=== PATIENT | female | born 2000 | race Caucasian/White ===

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

== ENCOUNTER → 2021-05-15 10:12 | Outpatient (BNVA) | payer BC, SELFPAY | PROVIDERS: Family Provider Nurse Practitioner Family; PCP Family Medicine; Visit Provider Surgery | DX: Z20.822 Contact with and (suspected) exposure to COVID-19 (principal) | CPT/HCPCS: 87635 ==

== ENCOUNTER 2021-05-20 10:45 | Day surgery (SDC) | payer BC, SELFPAY ==
[2021-05-16 09:29] VITALS: BMI 23.0
[2021-05-20] VITALS (17 sets, daily range): BP systolic 105–137; BP diastolic 56–105; PULSE 43–80; RESP 16–23; TEMP 36.6–36.7; O2SAT 93–100
[2021-05-20 11:03] LABS: OR HCG Qualitative Urine Negative (Negative)
[2021-05-20] MEDS: sodium chloride 0.9% 1,000 ML 30 ML IV (11:38)
[2021-05-20] MEDS: scopolamine 1.5 Patch 1 PATCH TRANSDERMA (11:39)
--- NOTE | 2021-05-20 12:49 | W.PM.OPSUD ---
Surgery/Procedure H&P Update DATE OF PROCEDURE: May 20, 2021 DATE H&P PERFORMED: 05/14/21 H&P UPDATE INFORMATION: I have reviewed H&P completed within last 30 days, I have examined patient prior to procedure and No changes to prior documentation PREOP DIAGNOSIS: Chronic cholecystitis PLANNED PROCEDURE: Operation Date: 05/20/21 12:20 Proposed Procedures p Laparoscopic Cholecystectomy 46915 K81.1(Not Applicable) - Salomon Arredondo MD
--- NOTE | 2021-05-20 13:49 | ANES.PREANE2 ---
Pre-Anesthetic Assessment Pre-Anesthetic Assessment: Height/Weight: Height 1.6 m Weight 58.967 kg Temp Pulse Resp BP Pulse Ox 98.1 F 80 18 126/59 98 05/20/21 11:06 05/20/21 11:06 05/20/21 11:06 05/20/21 11:06 05/20/21 11:06 Preop Diagnosis: Chronic cholecystitis Proposed Procedure: Operation Date: 05/20/21 12:20 Proposed Procedures p Laparoscopic Cholecystectomy 93636 K81.1(Not Applicable) - Salomon Arredondo MD Was Beta Terence taken within 24 hours: N/A Was Clonidine taken within 24 hours: N/A Last intake: Intake Last Liquid Date 05/20/21 Last Liquid Time 02:00 Last Solid Date 05/19/21 Last Solid Time 19:00 Social: Social History: No alcohol and No tobacco Comment: Vapes Exam: Pre-Anes Outpt Exam: alert, oriented x 3, clear to auscultation bilaterally and regular rate & rhythm Airway: Submandibular: WNL Cervical ROM: WNL MP: 2 Dentition: Full History/ROS: No significant history except as noted Anesthetic Plan: ASA status: 1 Anesthesia: General Risk of > 500 ml blood loss (7ml/kg in children): No Meds/Allergies Current Medications: Current Medications Generic Name Dose Route Start Last Admin Trade Name Freq PRN Reason Stop Dose Admin Sodium Chloride 1,000 mls @ 30 ml s/hr 05/20/21 11:00 05/20/21 11:38 Sodium Chloride 0.9% IV 05/21/21 10:59 30 mls/hr .Q24H JORGE Administration PFSH Anesthesia PFSH: Medical History Menometrorrhagia Surgical History (Updated 05/20/21 @ 12:51 by Salomon Arredondo MD) History of wisdom tooth extraction Status post laparoscopic cholecystectomy (~05/20/21) Family History Father Anesthesia complication Denies family history of Diabetes CAD (coronary artery disease) Clotting disorder Dementia Hyperlipidemia Psychiatric illness Chronic kidney disease (CKD) Suicide Bleeding disorder Family history of premature coronary artery disease Lung disease Cancer Hypertension Stroke Social History Alcohol intake: never Female Reproductive History: Date of last menstrual period: 05/16/21 Spontaneous abortions: No Data Anesthesia Other Labs: Laboratory Results - last 48 hr 05/20/21 10:41 Urine HCG, Qual Negative Cardiac Studies: No Data to Display
[2021-05-20] MEDS: meperidine 50 mg/mL INJ 12.5 MG IVP (14:22)
--- NOTE | 2021-05-20 14:26 | PM.OP ---
Operative Report Date of procedure: May 20, 2021 Pre-op Diagnosis: Chronic cholecystitis Post-op diagnosis: same Procedure Done: Laparoscopic cholecystectomy Specimens removed/disposition: Gallbladder Surgeon: Salomon Arredondo Anesthesia: General Condition: stable Disposition: PACU Procedure: The patient was taken to the operating room and was intubated under general anesthesia. After the antibiotic had been administered, the abdomen was prepped and draped in a sterile manner. Using a #15 blade, a 1 centimeter infraumbilical curvilinear incision was made and using an open Rakesh technique the peritoneal cavity was entered. A 10 millimeter port was placed and 15 millimeters of pneumoperitoneum was created. A 10 millimeter, 30 degrees scope was then introduced. Three 5 millimeter ports were placed in the epigastric, midclavicular and the anterior axillary line two fingerbreadths below the costal margin on the right side under the direct visualization. Ratcheted forceps were introduced into the lateral most port and was used to retract the fundus of the gallbladder cephalad and using forceps the infundibulum of the gallbladder was retracted laterally. Using L-hook cautery the peritoneum overlying the Calot's triangle was opened medially and laterally until the cystic duct and the cystic artery were skeletonized. Dissection was carried along the body of the gallbladder and after ensuring critical view of safety, 4 clips applied on the cystic duct and 3 clips applied on the cystic artery and cut leaving, 3 clips on the remaining portion of the duct and 2 clips on the remaining portion of the artery. The rest of the gallbladder was dissected off the liver using L-hook cautery. There was no bleeding or bile leaking noted from the gallbladder fossa and the clips appeared to be in place. An EndoCatch bag was introduced to remove the gallbladder. All the ports were removed under direct visualization and there was no bleeding noted from the port sites. The fascia of the umbilicus was closed using [id number] 0 Vicryl sutures and the subcutaneous tissue was approximated using 3-0 Vicryl sutures. The skin at all four ports were closed using 4-0 Monocryl and Dermabond. A total of 10 millimeters of 0.5% Marcaine was infiltrated around the port sites. The patient was stable throughout the procedure.
[2021-05-20] MEDS: fentaNYL 50 mcg/mL INJ 2mL IVP ×2 (14:32→14:38)
[2021-05-20] MEDS: HYDROmorphone 1 mg/mL INJ 1 mL 0.5 MG IVP (14:47)
--- NOTE | 2021-05-20 14:50 | SUR.PHASEI ---
[id number] PT CRYING , RESP FAST , PT STATES SHE HAS ANXIETY ISSUES, PT REMINDED SHE IS IN RECOVERY AND WE WILL KEEP WORKING TO RELIEVE HER PAIN PT STATES (IT HURTS REALLY BAD) DR PULIDO AT BEDSIDE , ORDERS RECIEVED TO GO TO [facility] FOR PAIN SEE MEDS GIVEN. ABD SOFT AND SITES D/I
--- NOTE | 2021-05-20 15:40 | ANE.PACU2 ---
Inpatient post-anesthesia follow up: Airway intact: Yes Vital signs: Temperature 97.8 F Pulse Rate 69 Respiratory Rate 20 Blood Pressure 116/70 Pulse Oximetry 99 Oxygen Delivery Me thod Room Air Oxygen Flow Rate 17 Fraction of Inspir ed Oxygen Hydration adequate: Yes Nausea and vomiting: No Pain level: 3 Mental status: Baseline
[2021-05-20] MEDS: HYDROcodone-acetaminophen 5-325 mg Tablet 1 TAB PO (15:45)
== END 2021-05-20 16:26 | disposition home or self-care (01) ==
PROVIDERS: PCP Family Medicine; Visit Provider Surgery
PROC: 0FT44ZZ Resection of Gallbladder, Percutaneous Endoscopic Approach (ICD-10-PCS; CPT 47562; principal; 2021-05-20 12:20)
DX: K81.1 Chronic cholecystitis (principal)
CPT/HCPCS: 47562; 81025; 84703; 88304; 96365; J0690; J1100; J1170; J1885; J2175; J2405; J2704; J2710; J3010; J3490; J7030

== ENCOUNTER 2021-05-22 21:12 | Emergency (ER) | payer BC, SELFPAY ==
[2021-05-22 23:19] VITALS: BP 104/68; PULSE 76; RESP 16; TEMP 36.8; O2SAT 98; BMI 23.0
[2021-05-23 02:04] LABS: Basophils # 0.1 10^3/uL (0.0-0.1); Basophils % 0.8 %; Eosinophils # 0.3 10^3/uL (0.0-0.8); Eosinophils % 3.8 %; Hematocrit 38.8 % (37.0-47.0); Hemoglobin 12.3 g/dL (11.5-15.3); Lymphocytes # 2.4 10^3/uL (1.5-6.5); Lymphocytes % 32.3 %; Mean Corpuscular HGB Conc 31.7 g/dL (30.0-36.0); Mean Corpuscular Hemoglobin 27.6 pg (28.0-34.0); Mean Corpuscular Volume 87.2 fl (81-99); Mean Platelet Volume 10.5 fL (7.4-10.4); Monocytes # 0.5 10^3/uL (0.2-0.9); Neutrophils # 4.24 10^3/uL (1.8-8.0); Nucleated Red Blood Cells % 0 %; Platelet Count 245 10^3/cmm (130-400); Red Blood Count 4.45 10^6/uL (4.1-5.3); Red Cell Distribution Width 13.3 % (12.1-15.1); White Blood Count 7.5 10^3/uL (4.5-13.0)
[2021-05-23 02:29] LABS: Alanine Aminotransferase 198 U/L (0-33); Albumin Level 3.9 g/dL (3.5-5.2); Alkaline Phosphatase 71 IU/L (35-105); Aspartate Amino Transferase 78 U/L (0-32); Blood Urea Nitrogen 11 mg/dL (6-20); Calcium 8.9 mg/dL (8.5-10.5); Carbon Dioxide 24 mmol/L (22-29); Chloride 104 mmol/L (98-107); Globulin 3.2 g/dL (1.3-4.6); Glomerular Filtration Rate 107.8 mL/min (90-130); Glucose 76 mg/dL (65-115); Lipase 28 U/L (13-60); Osmolality Calculated 282 mOsm/kg (285-295); Sodium 137 mmol/L (136-145); Total Bilirubin 0.6 mg/dL (0.15-1.2); Total Protein 7.1 g/dL (6.6-8.7)
--- NOTE | 2021-05-23 04:07 | CTR_ITS ---
PROCEDURE INFORMATION: Exam: CT Abdomen And Pelvis With Contrast Exam date and time: 05/23/2021 4:07 AM Age: 20 years old Clinical indication: Other: Incision draining. ; Prior surgery; Surgery date: 3-7 days post-operative; Patient HX: Drainage from umbilical incision site S/P gb surgery on 05/20/2021. ; Additional info: Abd pain TECHNIQUE: Imaging protocol: Computed tomography of the abdomen and pelvis with contrast. Radiation optimization: All CT scans at this facility use at least one of these dose optimization techniques: automated exposure control; mA and/or kV adjustment per patient size (includes targeted exams where dose is matched to clinical indication); or iterative reconstruction. Contrast material: OMNI 300; Contrast volume: 75 ml; Contrast route: INTRAVENOUS (IV); COMPARISON: Nathan relevant prior studies available. RADIATION DOSE METRICS: Total DLP (mGy-cm): 1128.29 FINDINGS: Lungs: The lung bases are clear. Liver: Unremarkable. Gallbladder and bile ducts: Evidence for recent cholecystectomy, no significant biliary tree dilation. No abnormal fluid collection in the gallbladder fossa. No significant peritoneal fluid to strongly suggest an active bile leak. No biliary tree dilation. Pancreas: Unremarkable. Spleen: Unremarkable. Adrenal glands: Unremarkable. Kidneys and ureters: Unremarkable. Stomach and bowel: There are no CT findings to strongly suggest diverticulitis. Appendix: The appendix is visualized and appears normal. Intraperitoneal space: There are a few very small areas of free intraperitoneal air in the abdomen, presumably related to the recent surgery. No generalized ascites, or significant bowel distention. Vasculature: No evidence for abdominal aortic aneurysm. Lymph nodes: No retroperitoneal adenopathy. Urinary bladder: Unremarkable as visualized. Reproductive: 5 x 4 x 3.7 x 5.1 cm left adnexal/ovarian cyst. This is somewhat larger than expected for a physiologic cyst, but that is still a likely etiology in this young age group. Other etiologies not excluded. Ultrasound could further evaluate these ovarian findings if felt clinically indicated, and could also be used for appropriate follow-up, to insure against a persistent or enlarging lesion/neoplasm. Mild to moderate amount of cul-de-sac fluid. Bones/joints: There is bilateral L5 spondylolysis, possibly partially healed on the right There is mild grade 1 spondylolisthesis. Soft tissues: Very small focus of gas in the left periumbilical region of the abdominal wall, presumably postsurgical in nature. There is no visible/significant abdominal wall fluid collection/hematoma or drainable abscess at this time. CT/CT abdomen pelvis w con* [id number] IMPRESSION: 1. Very small focus of gas in the left periumbilical region of the abdominal wall, presumably postsurgical in nature. There is no visible/significant abdominal wall fluid collection/hematoma or drainable abscess at this time. 2. Recent cholecystectomy, no significant biliary tree dilation. 3. No abnormal fluid collection in the gallbladder fossa. No significant peritoneal fluid to strongly suggest an active bile leak. 4. There are a few very small amounts of free intraperitoneal air in the abdomen, presumably related to the recent surgery. 5. 5 x 4 x 3.7 x 5.1 cm left adnexal/ovarian cyst, see above discussion. 6. No significant bowel distention. 7. Normal appendix. 8. Other findings discussed above. Radiation Dose CTDIVOL = (mGy): DLP = 1128.29 (mGy-cm)
[2021-05-23 04:23] VITALS: RESP 18
[2021-05-23] MEDS: ondansetron 2 mg/ML SDV 2 mL 4 MG IVP (04:23)
[2021-05-23] MEDS: HYDROmorphone 1 mg/mL INJ 1 mL IVP (04:23)
[2021-05-23 04:25] VITALS: BP 122/65; PULSE 78; RESP 18; O2SAT 98
--- NOTE | 2021-05-23 04:33 | W.ED.ABDPA2 ---
HPI - Abdominal Pain General: Chief Complaint: Abdominal Pain Stated Complaint: post op site draning Time Seen by Provider: 05/23/21 04:01 Source: patient Mode of arrival: ambulatory Limitations: no limitations History of Present Illness: HPI narrative: 20-year-old female who had cholecystectomy done 3 days ago states that today she has been having increasing pain with nausea. Patient states her pain is a 8 out of 10. States is worse with palpation improved with rest. Patient denies any vomiting or diarrhea. She denies any fevers. Patient's cholecystectomy was done laparoscopically. Associated Symptoms: Denies chills, dysuria and fever(s) Related Data: Date of Last Menstrual Period: 05/16/21 Review of Systems Const: Denies: fever(s), chills, body aches or change in appetite Eyes: Denies: blurry vision or eye discomfort ENMT: Denies: throat pain or dental pain Card: Denies: chest pain Resp: Denies: dyspnea GI: Reports: abdominal pain : Denies: dysuria Musc: Denies: neck pain or back pain Skin/Breast: Denies: rash Neuro: Denies: headache(s) Psych: Denies: depression Bib/Lymph: Denies: easy bruising All/Imm: Denies: urticaria PFSH ED PFSH: Medical History Menometrorrhagia Surgical History History of wisdom tooth extraction Status post laparoscopic cholecystectomy (~05/20/21) Family History Father Anesthesia complication Denies family history of Diabetes CAD (coronary artery disease) Clotting disorder Dementia Hyperlipidemia Psychiatric illness Chronic kidney disease (CKD) Suicide Bleeding disorder Family history of premature coronary artery disease Lung disease Cancer Hypertension Stroke Social History Alcohol intake: never Female Reproductive History: Date of last menstrual period: 05/16/21 Spontaneous abortions: No Physical Exam Const: COMMON NORMALS: no acute distress, patient oriented x3 and healthy appearing HENMT: COMMON NORMALS: normocephalic and atraumatic HEAD & SCALP: normocephalic and atraumatic Eye: COMMON NORMALS: Equal, round and reactive pupils present and EOMs intact bilaterally PUPIL: Yes Equal, round and reactive pupils present Neck/C-Spine: COMMON NORMALS: full ROM and supple Chest: COMMONS NORMALS: normal inspection of the chest and normal palpation of entire chest wall Resp: COMMON NORMALS: normal respiratory effort, No retractions, No use of accessory muscles and clear to auscultation bilaterally AUSCULTATION: clear to auscultation bilaterally Cardio: COMMON NORMALS: regular rate, regular rhythm and No murmurs present (Cardio) RATE: regular rate RHYTHM: regular rhythm GI: COMMON NORMALS: Normal to inspection, nondistended, normoactive bowel sounds present, Soft to palpation and no masses PALPATION: Yes Soft to palpation OTHER: Incisions are clean dry and intact diffuse moderate abdominal tenderness noted with no abscess noted Extremity: COMMON NORMALS: normal to inspection and full ROM Neuro: COMMON NORMALS: patient oriented x3, moves all extremities and no focal motor deficits Psych: COMMON NORMALS: mental status grossly normal, Normal thought process present and cooperative THOUGHT PROCESS: Normal thought process present Skin: COMMON NORMALS: no rashes or lesions noted and no wounds GENERAL SKIN EXAM: no rashes or lesions noted Course Vital Signs: Vital signs: Vital Signs Temperature 98.3 F 05/22/21 23:19 Pulse Rate 78 05/23/21 04:25 Respiratory Rate 18 05/23/21 04:25 Blood Pressure 122/65 05/23/21 04:25 Pulse Oximetry 98 05/23/21 04:25 MDM - Abdominal Pain MDM Narrative: Medical decision making narrative: Patient presents here with abdominal pain likely postsurgical pain. Patient CT scan here shows no abscess or any other findings. She feels much improved here after IV pain medicines. Patient's stable for discharge is to follow-up with Dr. Arredondo and return if worsening. Lab Data: Labs: Lab Results 05/23/21 05/23/21 05/23/21 Range/Units 02:00 02:00 02:00 WBC 7.5 (4.5-13.0) 10^3/ uL RBC 4.45 (4.1-5.3) 10^6/u L Hgb 12.3 (11.5-15.3) g/dL Hct 38.8 (37.0-47.0) % MCV 87.2 (81-99) fl MCH 27.6 L (28.0-34.0) pg MCHC 31.7 (30.0-36.0) g/dL RDW 13.3 (12.1-15.1) % Plt Count 245 (130-400) 10^3/c mm MPV 10.5 H (7.4-10.4) fL Neut % (Auto) 57.0 % Lymph % (Auto) 32.3 % [place] % (Auto) 6.0 % Eos % (Auto) 3.8 % Baso % (Auto) 0.8 % Neut # (Auto) 4.24 (1.8-8.0) 10^3/u L Lymph # (Auto) 2.4 (1.5-6.5) 10^3/u L [place] # (Auto) 0.5 (0.2-0.9) 10^3/u L Eos # (Auto) 0.3 (0.0-0.8) 10^3/u L Baso # (Auto) 0.1 (0.0-0.1) 10^3/u L Nucleated RBC % (a uto) 0 % Nucleated RBCs # 0.0 /100WBC Sodium 137 (136-145) mmol/L Potassium 4.0 (3.5-5.1) mmol/L Chloride 104 (98-107) mmol/L Carbon Dioxide 24 (22-29) mmol/L Anion Gap 13.0 (5-19) BUN 11 (6-20) mg/dL Creatinine 0.7 (0.5-0.9) mg/dL GFR Calculation 107.8 (90-130) mL/min Glucose 76 (65-115) mg/dL Calculated Osmolal ity 282 L (285-295) mOsm/k g Calcium 8.9 (8.5-10.5) mg/dL Total Bilirubin 0.6 (0.15-1.2) mg/dL AST 78 H (0-32) U/L ALT 198 H (0-33) U/L Alkaline Phosphata se 71 (35-105) IU/L Total Protein 7.1 (6.6-8.7) g/dL Albumin 3.9 (3.5-5.2) g/dL Globulin 3.2 (1.3-4.6) g/dL Lipase 28 (13-60) U/L HCG, Qual Negative (Negative) Imaging Data ^: CT Abd/Pel: Attestation: I personally reviewed and interpreted this imaging study as follows: Radiologist's impression: [facility] [address] [place] [address] CT Scan Report Signed Patient: Simona Elise Unit #: [id number] : 2000 Age/Sex: 20 / F ADM Date: 05/22/21 Loc: ER Room/Bed: Attending Dr: Ordering Provider/Ordering MD: Adalid Carr MD Date of Service: 05/23/21 Procedure(s): CT abdomen pelvis w con* [id number] Accession Number(s): [id number] Report Number: [id number] PROCEDURE INFORMATION: Exam: CT Abdomen And Pelvis With Contrast Exam date and time: 05/23/2021 4:07 AM Age: 20 years old Clinical indication: Other: Incision draining. ; Prior surgery; Surgery date: 3-7 days post-operative; Patient HX: Drainage from umbilical incision site S/P gb surgery on 05/20/2021. ; Additional info: Abd pain TECHNIQUE: Imaging protocol: Computed tomography of the abdomen and pelvis with contrast. Radiation optimization: All CT scans at this facility use at least one of these dose optimization techniques: automated exposure control; mA and/or kV adjustment per patient size (includes targeted exams where dose is matched to clinical indication); or iterative reconstruction. Contrast material: OMNI 300; Contrast volume: 75 ml; Contrast route: INTRAVENOUS (IV); COMPARISON: Nathan relevant prior studies available. RADIATION DOSE METRICS: Total DLP (mGy-cm): 1128.29 FINDINGS: Lungs: The lung bases are clear. Liver: Unremarkable. Gallbladder and bile ducts: Evidence for recent cholecystectomy, no significant biliary tree dilation. No abnormal fluid collection in the gallbladder fossa. No significant peritoneal fluid to strongly suggest an active bile leak. No biliary tree dilation. Pancreas: Unremarkable. Spleen: Unremarkable. Adrenal glands: Unremarkable. Kidneys and ureters: Unremarkable. Stomach and bowel: There are no CT findings to strongly suggest diverticulitis. Appendix: The appendix is visualized and appears normal. Intraperitoneal space: There are a few very small areas of free intraperitoneal air in the abdomen, presumably related to the recent surgery. No generalized ascites, or significant bowel distention. Vasculature: No evidence for abdominal aortic aneurysm. Lymph nodes: No retroperitoneal adenopathy. Urinary bladder: Unremarkable as visualized. Reproductive: 5 x 4 x 3.7 x 5.1 cm left adnexal/ovarian cyst. This is somewhat larger than expected for a physiologic cyst, but that is still a likely etiology in this young age group. Other etiologies not excluded. Ultrasound could further evaluate these ovarian findings if felt clinically indicated, and could also be used for appropriate follow-up, to insure against a persistent or enlarging lesion/neoplasm. Mild to moderate amount of cul-de-sac fluid. Bones/joints: There is bilateral L5 spondylolysis, possibly partially healed on the right There is mild grade 1 spondylolisthesis. Soft tissues: Very small focus of gas in the left periumbilical region of the abdominal wall, presumably postsurgical in nature. There is no visible/significant abdominal wall fluid collection/hematoma or drainable abscess at this time. CT/CT abdomen pelvis w con* [id number] IMPRESSION: 1. Very small focus of gas in the left periumbilical region of the abdominal wall, presumably postsurgical in nature. There is no visible/significant abdominal wall fluid collection/hematoma or drainable abscess at this time. 2. Recent cholecystectomy, no significant biliary tree dilation. 3. No abnormal fluid collection in the gallbladder fossa. No significant peritoneal fluid to strongly suggest an active bile leak. 4. There are a few very small amounts of free intraperitoneal air in the abdomen, presumably related to the recent surgery. 5. 5 x 4 x 3.7 x 5.1 cm left adnexal/ovarian cyst, see above discussion. 6. No significant bowel distention. 7. Normal appendix. 8. Other findings discussed above. Radiation Dose CTDIVOL = (mGy): DLP = 1128.29 (mGy-cm) Dictated By: Grupo Pat MD Signed By: Grupo Pat MD Signed Date/Time: 05/23/21601 DD/ 9 Discharge Plan Discharge Patient Disposition: Home Clinical Impression: Abdominal pain Qualifiers: Abdominal location: generalized Qualified Code(s): R10.84 - Generalized abdominal pain Condition: Stable Prescriptions: No Action levonorgestrel-ethinyl estrad [Jolessa] 0.15 mg-30 mcg (91) tablets,dose pack,3 month 1 tab PO DAILY 91 Days Qty: 91 RF: 4 triamcinolone acetonide 0.1 % cream 1 applic topical BID 30 Days Qty: 80 RF: 2 Zofran 4 mg tablet 4 mg PO Q6H PRN (Reason: nausea and vomiting) Qty: 20 RF: 0 Colace 100 mg capsule 100 mg PO BID Qty: 30 RF: 0 hydrocodone-acetaminophen 5-325 mg tablet 1 tab PO Q6H PRN (Reason: pain) Qty: 20 RF: 0 Discharge Orders: Discharge ED (Routine); Ordered 05/23/21 Ordered By: Adalid Carr Referrals: Tami Mcgowan MD [Primary Care Provider] - 1-3 days Discharge Diet: Advance as tolerated Discharge Activity: Resume usual activity Patient Instructions: Abdominal Pain (ED) Coding Level of Care Code ED Business Process Architect for Chg Fwd Exam Comprehensive
[2021-05-23 04:47] LABS: HCG, Serum Qual Negative (Negative)
[2021-05-23] MEDS: iohexol 300 mg/mL 100 mL Btl IV (05:03)
[2021-05-23 07:00] VITALS: BP 122/62; PULSE 68; RESP 18; O2SAT 98
== END 2021-05-23 07:01 | disposition home or self-care (01) ==
PROVIDERS: Emergency Provider Emergency Medicine; PCP Family Medicine
DX: R10.84 Generalized abdominal pain (principal)
CPT/HCPCS: 74177; 80053; 83690; 84703; 85025; 96374; 96375; 99283; J1170; J2405; Q9967

== ENCOUNTER → 2021-07-30 13:07 | Outpatient (BNVA) | payer BC, SELFPAY | PROVIDERS: PCP Family Medicine; Visit Provider Nurse Practitioner Women's Health | DX: N92.6 Irregular menstruation, unspecified (principal) | CPT/HCPCS: 81025 ==

== ENCOUNTER → 2021-08-06 11:28 | Outpatient (BNVA) | payer BC, SELFPAY | PROVIDERS: PCP Family Medicine; Visit Provider Obstetrics & Gynecology | DX: Z34.90 Encounter for supervision of normal pregnancy, unspecified, unspecified trimester (principal) | CPT/HCPCS: 80307; 84315; 85027; 86592; 86762; 86803; 86850; 86900; 87086; 87340; 87806 ==

== ENCOUNTER → 2021-08-20 15:31 | Outpatient (BNVA) | payer BC, MEDICAID, SELFPAY | PROVIDERS: PCP Family Medicine; Visit Provider Obstetrics & Gynecology | DX: Z34.90 Encounter for supervision of normal pregnancy, unspecified, unspecified trimester (principal) | CPT/HCPCS: 84315; 87491; 87591 ==

== ENCOUNTER → 2021-08-30 09:44 | Outpatient (BNVA) | payer BC, MEDICAID, SELFPAY | PROVIDERS: PCP Family Medicine; Visit Provider Obstetrics & Gynecology | DX: O23.52 Salpingo-oophoritis in pregnancy (principal) | CPT/HCPCS: 76830; 76857 ==

== ENCOUNTER → 2021-09-13 11:13 | Outpatient (BNVA) | payer BC, MEDICAID, SELFPAY | PROVIDERS: PCP Family Medicine; Visit Provider Nurse Practitioner Women's Health | DX: Z34.90 Encounter for supervision of normal pregnancy, unspecified, unspecified trimester (principal); Z36.9 Encounter for antenatal screening, unspecified | CPT/HCPCS: 82105; 84315 ==

== ENCOUNTER → 2021-12-09 16:20 | Outpatient (BNVA) | payer BC, MEDICAID, SELFPAY | PROVIDERS: PCP Family Medicine; Visit Provider Obstetrics & Gynecology | DX: Z34.90 Encounter for supervision of normal pregnancy, unspecified, unspecified trimester (principal); R19.8 Other specified symptoms and signs involving the digestive system and abdomen | CPT/HCPCS: 82950; 84315; 85027 ==

== ENCOUNTER 2021-12-24 15:30 | Outpatient (CLI) | payer BC, MEDICAID, SELFPAY ==
[2021-12-24] VITALS (10 sets, daily range): BP systolic 101–151; BP diastolic 60–69; PULSE 75–89; RESP 16; TEMP 35.9; BMI 33.8
[2021-12-24] MEDS: lactated ringers 1,000 ML 999 ML IV (17:11)
== END 2021-12-24 18:30 | disposition home or self-care (01) ==
LOC: OPOB 15:33 → OBGYN 15:34
PROVIDERS: PCP Family Medicine; Visit Provider Obstetrics & Gynecology
DX: O46.90 Antepartum hemorrhage, unspecified, unspecified trimester (principal); Z3A.00 Weeks of gestation of pregnancy not specified; R10.9 Unspecified abdominal pain
CPT/HCPCS: 59025; 99211

== ENCOUNTER → 2022-02-04 10:00 | Outpatient (BNVA) | payer BC, MEDICAID, SELFPAY | PROVIDERS: PCP Family Medicine; Visit Provider Obstetrics & Gynecology | DX: Z34.90 Encounter for supervision of normal pregnancy, unspecified, unspecified trimester (principal) | CPT/HCPCS: 84315; 87081 ==

== ENCOUNTER 2022-02-17 08:57 | Outpatient (CLI) | payer BC, MEDICAID, SELFPAY ==
[2022-02-17] VITALS (10 sets, daily range): BP systolic 100–127; BP diastolic 57–81; PULSE 74–91; RESP 18; TEMP 36.1; BMI 35.6
--- NOTE | 2022-02-17 10:00 | P.PCN_ITS ---
Procedure/Consent Procedure Narrative: NONSTRESS TEST: Place of test: [facility] [place]L&D Indication: 21-year-old 1 para 0 at 38 weeks and 3 days gestation with IUGR Date and time of test: 02/17/2022 Baseline: 140 Variability: Moderate variability Accelerations: Accelerations present Decelerations: No decelerations Tocometry: Irregular contractions INTERPRETATION: NST reactive continue kick counts
--- NOTE | 2022-02-17 10:12 | US_ITS ---
WS: [id number] BIOPHYSICAL PROFILE AMNIOTIC FLUID UMBILICAL ARTERY DOPPLER EVALUATION. HISTORY: IUGR COMPARISON: 02/10/2022, Cardiac activity: 126 bpm. Cervix: closed. Placenta: Anterior, no previa or abruption. Placenta grade: Late grade 2. Several placental lakes are also evident which increases the risk for I UGR. Hypoechoic area in the LEFT adnexa is probably a displaced ovary by the gravid uterus or cyst. Parameters are as follows: Breathin Movement: 2 Tone: 2 Fluid volume: 2 Amniotic fluid index: 13.3 cm which is near the 50th percentile. UMBILICAL ARTERY DOPPLER Waveform analysis: Normal systolic and diastolic velocities. Diastolic velocity remains above the bas estella. Normal upstroke of waveform. SD ratios: SD ratios range from 2.3-1.9, free-floating umbilical segment SD ratio is 2.1 which is nor mal for age. Resistivity indices: 0.53 US/US OB BPP wo NST w umb IMPRESSION: 1. Biophysical profile score: 8/8. 2. Normal SD ratio umbilical artery. 3. Late grade 2 placenta.
== END 2022-02-17 11:48 | disposition home or self-care (01) ==
LOC: OPOB 10:04 → OBGYN 10:05
PROVIDERS: PCP Family Medicine; Visit Provider Obstetrics & Gynecology
DX: O36.5930 Maternal care for other known or suspected poor fetal growth, third trimester, not applicable or unspecified (principal); Z3A.38 38 weeks gestation of pregnancy
CPT/HCPCS: 59025; 76819; 76820; 99211

== ENCOUNTER 2022-02-21 21:07 | Inpatient (IN) | payer BC, MEDICAID, SELFPAY ==
[2022-02-21] VITALS (8 sets, daily range): BP systolic 100–118; BP diastolic 60–81; PULSE 71–106; RESP 16; BMI 36.1
[2022-02-21] MEDS: lactated ringers 1,000 ML 999 ML IV (22:11)
[2022-02-21 22:18] LABS: Basophils % 0.4 %; Eosinophils # 0.2 10^3/uL (0.0-0.8); Eosinophils % 1.7 %; Hematocrit 32.6 % (37.0-47.0); Hemoglobin 10.7 g/dL (11.5-15.3); Lymphocytes # 2.4 10^3/uL (1.5-6.5); Lymphocytes % 21.5 %; Mean Corpuscular HGB Conc 32.8 g/dL (30.0-36.0); Mean Corpuscular Hemoglobin 27.2 pg (28.0-34.0); Mean Platelet Volume 12.1 fL (7.4-10.4); Monocytes # 0.9 10^3/uL (0.2-0.9); Monocytes % 8.3 %; Neutrophils # 7.44 10^3/uL (1.8-8.0); Neutrophils % 67.5 %; Nucleated Red Blood Cells % 0 %; Platelet Count 186 10^3/cmm (130-400); Red Blood Count 3.93 10^6/uL (4.1-5.3)
[2022-02-21] MEDS: miSOPROStol 100 mcg tablet 25 MCG VAGINAL (23:20)
[2022-02-22] VITALS (99 sets, daily range): BP systolic 86–207; BP diastolic 50–125; PULSE 61–123; RESP 16–22; TEMP 36.7–37.6; O2SAT 83–100
[2022-02-22] MEDS: morphine 4 mg/mL SDV 1 mL 8 MG IM (01:01)
[2022-02-22] MEDS: promethazine 25 mg/mL SDV 1 mL IM (01:01)
[2022-02-22] MEDS: miSOPROStol 100 mcg tablet 25 MCG VAGINAL ×2 (03:23→09:02)
[2022-02-22] MEDS: dextrose 5%-lactated ringers 1,000 ML 125 ML IV (04:59)
--- NOTE | 2022-02-22 10:04 | P.ANESASSM_ITS ---
Documented by User: Nuzhat Rose CRNA 02/22/22 10:05 Pre-Anesthetic Assessment Height/Weight: Height 1.6 m Weight 92.533 kg Temp Pulse Resp BP 98.8 F 83 16 110/55 02/22/22 08:35 02/22/22 09:35 02/22/22 09:34 02/22/22 09:35 Preop Diagnosis: Active Labor Labor Epidural Familial anesthetic complications: None Social No alcohol and No tobacco Exam alert, oriented x 3 and clear to auscultation bilaterally Airway Submandibular: within normal limits Cervical ROM: within normal limits Mallampati: Class II Dentition: full History/ROS No significant history except as noted Pulmonary None reported CV/HEM None reported None reported Hepatic None reported GI None reported Metabolic None reported Musc/skel None reported Neuropsych None reported Anesthetic Plan ASA status: 2 Anesthesia: Regional (specify below) Other: Labor Epidural Medications/Allergies Home Medications Medication Instructions Recorded Confirmed Last Taken Type prenat.vits,charlotte,eet-zobl-oqyre 1 tab PO DAILY 08/06/21 02/21/22 02/21/22 History Allergies Allergy/AdvReac Type Severity Reaction Status Date / Time No Known Allergies Allergy Verified 02/21/22 23:29 Current Medications Generic Name Dose Route Start Last Admin Trade Name Freq PRN Reason Stop Dose Admin Dextrose/Lactated Ringer's 1,000 mls @ 125 mls/hr 02/21/22 21:28 02/22/22 04:59 Dextrose 5%-Lactated Ringers IV 125 mls/hr .Q8H PRN Administration per label comments FOR[facility] Anesthesia Medical History No pertinent past medical history Denies diabetes, asthma, hypertension, seizures, DVT/PE PCP: Dr. Mcgowan Surgical History History of wisdom tooth extraction Status post laparoscopic cholecystectomy (~05/20/21) Performed by Dr. Arredondo at [facility] [place] Family History Grandmother Breast cancer Maternal, diagnosed at age 65 Denies family history of Colon cancer Ovarian cancer Diabetes Heart disease Hyperlipidemia Chronic kidney disease (CKD) Hypertension Uterine cancer Thyroid disease Stroke Female Reproductive History Date of last menstrual period: 05/16/21 : 1 Spontaneous abortions: No Data Anesthesia : 02/21/22 22:05 Short CBC 02/21/22 Range/Units 22:05 WBC 11.0 (4.5-13.0) 10^3/uL Hgb 10.7 L (11.5-15.3) g/dL Hct 32.6 L (37.0-47.0) % MCV 83.0 (81-99) fl Plt Count 186 (130-400) 10^3/cmm Neut % (Auto) 67.5 % Neut # (Auto) 7.44 (1.8-8.0) 10^3/uL Cardiac Studies: No Data to Display
--- NOTE | 2022-02-22 11:00 | PM.OPHPUD ---
Labor & Delivery H&P Update Date of Procedure: February 22, 2022 Date H&P Performed: 02/17/22 H&P update information: I have reviewed H&P completed within last 30 days, I have examined patient prior to procedure, No changes to prior documentation and H&P is in [facility] [place] [place] EMR on date indicated Admission Diagnosis: Preop diagnosis: Active Labor
[2022-02-22] MEDS: fentaNYL 50 mcg/mL INJ 2mL IVP ×2 (12:34→14:37)
[2022-02-22] MEDS: lactated ringers 1,000 ML 999 ML IV ×3 (13:18→19:19)
--- NOTE | 2022-02-22 15:26 | ANES.PROC ---
Anesthesia Procedures Procedure/Date: 02/22/22 Epidural: Time Out Performed: Yes Consents Signed: Procedure Consent Consent: from patient Lumbar Level: L3-L4 Epidural position: sitting Epidural procedure: sterile prep of area, 1% lidocaine to numb the area, 18 g needle, neg for paresthesia, test dose given, 1.5% xylocaine 1:200k epi, 0.2% Ropivacaine bolus ml, placed PCEA, no systemic response, sterile dressing applied and 0.2% Ropiavacaine @ mls/hr (13) Additional Comments: Called to help assist with epidural after 4 attempts by Nuzhat Rose were unsuccessful. New kit opened. Cap, mask donned by staff in room. Patient sat up. Patient prepped and draped in usual sterile fashion with Chlorprep. 1% lidocaine skin wheel. Tuohy inserted with stylet. Ligament engaged. Using EARNEST w/ saline technique epidural space found, catheter threaded. Negative aspiration. Test dose 1.5% lidocaine with epinephrine 1:200,000 total 3 cc. No response. Sterile dressing. Infusion started. Loss at?8 , catheter at 15 cm. Tolerated well, 2 attempts, good block.?
[2022-02-22] MEDS: diphenhydrAMINE 50 mg/mL SDV 1mL 25 MG IVP (16:48)
--- NOTE | 2022-02-22 18:01 | PC.NURSE ---
Pastrana 30 minutes after insertion of pastrana catheter patient c/o burning and itching. Upon examination patient's labia noted to be swollen significantly. Pastrana removed and a latex free all silicone 12F catheter inserted with 5ml in balloon. Notified Dr. Cooper who ordered 25mg benadryl IVP.
--- NOTE | 2022-02-22 19:38 | PC.NURSE ---
Vital signs at 1917 patient noted to be laying on cuff and cuff in improper position during blood pressure check.
[2022-02-22] MEDS: ondansetron 2 mg/ML SDV 2 mL 4 MG IVP (19:55)
[2022-02-22] MEDS: oxytocin 30 UNIT/500 ML BAG 600 UNIT IV (21:11)
[2022-02-22] MEDS: miSOPROStol 200 mcg Tablet 800 MCG PR (21:15)
--- NOTE | 2022-02-22 21:28 | PM.DELIVERY ---
Delivery Note: Date of delivery: February 22, 2022 - PRE-DELIVERY DIAGNOSIS: 21-year-old 1 para 0 at 39 weeks and 0 days gestation Induction of labor for IUGR-8 percentile GBS negative Left ovarian cyst POST-DELIVERY DIAGNOSIS: Vaginal delivery on 02/22/2022 Left ovarian cyst PROCEDURE: Vaginal delivery on 02/22/2022 ANESTHESIA: Epidural anesthesia DELIVERING PHYSICIAN: Roney Cooper FACOG PRE-DELIVERY COURSE: Ms. Elise is a 21-year-old 1 para 0 at 39 weeks and 0 days who presented to labor and delivery on 02/21/2022 at 9 PM for scheduled induction of labor for IUGR. She had an otherwise uncomplicated course other than the presence of a stable left adnexal/ovarian cyst. -When she presented to labor and delivery she had no new complaints cervix was 1 cm 50% and -3 station with a category 1 tracing. Lab work was overall within normal limits except for mild anemia. Induction was started with Cytotec placed at 11 PM on 02/21/2022. 4 hours later she made no cervical change and a second Cytotec was placed at 4 AM. 4 hours later she had not made any cervical change but was having irregular contractions every 2 to 5 minutes. She received an IV fluid bolus was allowed to ambulate and eat and after this contractions had spaced out to every 6 to 10 minutes and the third Cytotec was placed at 9 AM on 02/22/2022. With this she started to grow more uncomfortable and had regular contractions and desired an epidural which was placed. At about 12:45 PM on 02/22/2022 she was noted to be 4 to 5 cm, 70% and -3 station. After the epidural and after she was comfortable artificial rupture of membranes was performed at 3:55 PM at which point she was 5 cm and 70% and -2 station. Fluid was clear. She started to make cervical change after this and was fully dilated at 8:45 PM and set up in lithotomy position ready to push. DELIVERY NOTE: She was set up in lithotomy position and was pushing effectively. She was noted to be +3 station and continued pushing well. The head delivered in RICCARDO position, nuchal cord x1 was present-it was not tight but it was unable to be reduced and with the next push the shoulders and rest of the body followed with her next push and deliver through the nuchal cord without any difficulty. The baby's mouth and nose were suctioned and the baby was placed on the mother's belly. Once cord pulsations stopped the cord was clamped and cut. The placenta delivered spontaneously intact with membranes and was discarded. The fundus was noted to be firm and well contracted however the lower segment was extremely boggy despite bimanual massage. 100 mcg of Cytotec was placed per rectum and with this and continued bimanual massage uterine tone improved. The vagina and cervix were inspected and no cervical or sulcal lacerations were noted. She had a first-degree vaginal laceration and a small abrasion on her right labia which repaired with a [id number]-[id number] suture. Good hemostasis and reapproximation was obtained Baby Lexus plaza born at 9:07 PM on 02/[birth year]22 with 8/8, weighing 6 pounds 6 ounces, 2865 g, 19-1/2 inches long. Placenta was delivered spontaneously intact with membranes. Cotyledons were intact , eccentrically inserted umbilical cord with 3 vessels noted. Estimated blood loss 300 mL. Complications-none, both baby and mother were left to recover in a stable condition This documentation was created by [employer] residential solar sales consultant software (known for inherent residential solar sales consultant error). Every effort was made to assure accuracy of residential solar sales consultant. Any obvious errors or omissions should be clarified with the author of the document. History History History 1 Term 1 Miscarriages/Ectopic 0 0 Living Children 1 Other History: X 1 1---> 02/22/2022----> vaginal delivery by Dr. Cooper at [facility] [place], baby bola Alberts weighing 6 pounds 6 ounces. Induction of labor at 39 weeks and 0 days for IUGR of 8 percentile. First-degree vaginal tear. Coding Level of Care Code Acute Pain Coordinator for Enrriqueg Lucy
--- NOTE | 2022-02-22 23:16 | PC.NURSE ---
This RN was to bedside to assist mother with latching. was skin to skin. Helped mother position infant in the football hold. Educated on latching, how to tell if it is deep latch, hand expression.
[2022-02-22] MEDS: benzocaine-menthol 78 gm Canister 1 SPRAY TOPICAL (23:27)
[2022-02-22] MEDS: lanolin oint 7 gm 1 APPLIC TOPICAL (23:28)
[2022-02-23] VITALS (16 sets, daily range): BP systolic 92–130; BP diastolic 44–63; PULSE 56–101; RESP 18; TEMP 36.4–37.4
[2022-02-23] MEDS: docusate sodium 100 mg Capsule PO (09:00)
[2022-02-23] MEDS: prenatal vitamin Capsule 1 CAP PO (09:00)
[2022-02-23] MEDS: ibuprofen 800 mg tablet PO ×3 (09:00→21:27)
[2022-02-23 11:42] LABS: Hematocrit 30.9 % (37.0-47.0); Mean Corpuscular HGB Conc 32.4 g/dL (30.0-36.0); Mean Corpuscular Hemoglobin 27.1 pg (28.0-34.0); Mean Corpuscular Volume 83.7 fl (81-99); Mean Platelet Volume 12.1 fL (7.4-10.4); Platelet Count 155 10^3/cmm (130-400); Red Blood Count 3.69 10^6/uL (4.1-5.3); Red Cell Distribution Width 13.2 % (12.1-15.1); White Blood Count 13.4 10^3/uL (4.5-13.0)
--- NOTE | 2022-02-23 11:47 | PM.PN ---
Subjective Subjective: Subjective- Ms. Elise is doing well today. Reports feeling a little sore but otherwise denies heavy vaginal bleeding, shortness of breath, chest pain, nausea, vomiting. Is still finding breast-feeding a little hard but is working on latching. Denies any other concerns and overall feels fine. Has been voiding without difficulty. Does have some cramping when she breast-feeds. OBJECTIVE/PHYSICAL EXAM: Gen.: No acute distress Heart: S1-S2 heard, regular rate and rhythm Lungs: Clear to auscultation bilaterally Abdomen: Soft, fundus firm below umbilicus, Legs: No calf tenderness, +1 bilateral pitting pedal edema. ASSESSMENT AND PLAN: 21-year-old 1 para 1 status post vaginal delivery, day #1 -Doing well-continue routine care -Discontinue IV at 24 hours -Vital signs stable, hemoglobin stable, no sign of infection - consult ordered -Anticipate discharge home tomorrow so that patient can recover from delivery. -Encourage ambulation, SCDs while in bed for DVT prophylaxis Vitals/I&O/Wt Last Vital Signs Temp 97.5 F L 02/23/22 07:19 Pulse 70 02/23/22 11:00 Resp 20 H 02/22/22 14:37 BP 98/60 02/23/22 11:00 Pulse Ox 100 02/22/22 15:19 02/22/22 02/23/22 02/23/22 22:59 06:59 14:59 Intake Total 2398.1 / 3398.1 200 / 3598.1 Output Total 900 / 900 2075 / 2975 Balance 1498.1 / 2498.1 -1875 / 623.1 Weight last 48 hrs Weight 204 lb Physical Exam Urinary Catheter Management: Solis Latex: Cath Placed During This Visit: yes, but has since been removed by the nurse Reason for Continuing Indwelling Catheter: Required Immobilization for Trauma or Surgery or Anesthesia Urinary Catheter Date of Insertion: 02/22/22 Urinary Catheter Time of Insertion: 15:59 Date Urinary Catheter Removed: 02/22/22 Time Urinary Catheter Discontinued: 20:47 Data : 02/23/22 11:15 Attestations Medical Necessity Statement*: Patient needs to stay for 1-2 more midnights to recover from delivery. Coding Level of Care Code Acute Sas Clinical Programmer for Tameka Ayala
[2022-02-24] VITALS (7 sets, daily range): BP systolic 92–123; BP diastolic 53–72; PULSE 67–92; RESP 16; TEMP 36.4–36.8
[2022-02-24] MEDS: ibuprofen 800 mg tablet PO (11:37)
[2022-02-24] MEDS: prenatal vitamin Capsule 1 CAP PO (11:38)
[2022-02-24] MEDS: docusate sodium 100 mg Capsule PO (11:38)
--- NOTE | 2022-02-24 12:48 | P.DS_ITS ---
Discharge Providers CASTING MACHINE OPERATOR HELPER Date of Admission: 02/21/22 21:07 Date of Discharge: 02/24/22 Attending Provider at Admission: Roney Villa MD Attending Provider at Discharge: Roney Villa MD PRE-DELIVERY DIAGNOSIS: 21-year-old 1 para 0 at 39 weeks and 0 days gestation Induction of labor for IUGR-8 percentile GBS negative Left ovarian cyst POST-DELIVERY DIAGNOSIS: Vaginal delivery on 02/22/2022 Left ovarian cyst PROCEDURE: Vaginal delivery on 02/22/2022 ANESTHESIA: Epidural anesthesia DELIVERING PHYSICIAN: Roney Cooper FACOG PRE-DELIVERY COURSE: Ms. Elise is a 21-year-old 1 para 0 at 39 weeks and 0 days who presented to labor and delivery on 02/21/2022 at 9 PM for scheduled induction of labor for IUGR.? She had an otherwise uncomplicated course other than the presence of a stable left adnexal/ovarian cyst. -When she presented to labor and delivery she had no new complaints cervix was 1 cm 50% and -3 station with a category 1 tracing.? Lab work was overall within normal limits except for mild anemia.? Induction was started with Cytotec placed at 11 PM on 02/21/2022.? 4 hours later she made no cervical change and a second Cytotec was placed at 4 AM.? 4 hours later she had not made any cervical change but was having irregular contractions every 2 to 5 minutes.? She received an IV fluid bolus was allowed to ambulate and eat and after this contractions had spaced out to every 6 to 10 minutes and the third Cytotec was placed at 9 AM on 02/22/2022.? With this she started to grow more uncomfortable and had regular contractions and desired an epidural which was placed.? At about 12:45 PM on 02/22/2022 she was noted to be 4 to 5 cm, 70% and -3 station.? After the epidural and after she was comfortable artificial rupture of membranes was performed at 3:55 PM at which point she was 5 cm and 70% and -2 station.? Fluid was clear.? She started to make cervical change after this and was fully dilated at 8:45 PM and set up in lithotomy position ready to push. DELIVERY? NOTE: She was set up in lithotomy position and was pushing effectively. She was noted to be? +3 station and continued pushing well. The head delivered in RICCARDO position, nuchal cord x1 was present-it was not tight but it was unable to be reduced and with the next push the shoulders and rest of the body followed with her next push and deliver through the nuchal cord without any difficulty. The baby's mouth and nose were suctioned and the baby was placed on the mother's belly.? Once cord pulsations stopped the cord was clamped and cut.? The placenta delivered spontaneously intact with membranes and was discarded. The fundus was noted to be firm and well contracted however the lower segment was extremely boggy despite bimanual massage.? 100 mcg of Cytotec was placed per rectum and with this and continued bimanual massage uterine tone improved.? The vagina and cervix were inspected and no cervical or sulcal lacerations were noted.? She had a first-degree vaginal laceration and a small abrasion on her right labia which? repaired with a [id number] suture.? Good hemostasis and reapproximation was obtained Baby girl, Lexus born at 9:07 PM on 02/22/20[birth year] with 8/8, weighing 6 pounds 6 ounces, 2865 g, 19-1/2 inches long. Placenta was delivered spontaneously intact with membranes. Cotyledons were intact , eccentrically inserted umbilical cord with 3 vessels noted. Estimated blood loss 300 mL. Complications-none, both baby and mother were left to recover in a stable condition HOSPITAL COURSE: She underwent an uncomplicated vaginal delivery on 02/22/2022. She did well on day 0 and was ambulating well, tolerating regular diet, voiding freely, passing flatus. She was breast-feeding without difficulty and bonding well with her daughter. Pain was well-controlled with by mouth pain medication. She denied nausea, vomiting, fever, chills, shortness of breath, leg pain. She had moderate vaginal bleeding. On day # 1 she continued to do well with stable vital signs and stable hemoglobin at 10. She continued to do well on day #2 and had better success with breast-feeding. She was discharged home on day 2 in a stable condition. Warning signs for endometritis, mastitis, DVT/PE were reviewed with her. Post delivery activity restrictions were also reviewed with her at all her questions were answered to her satisfaction. She plans on using the IUD for contraception and she was given instructions to remain abstinent until its placement. EXAM AT DISCHARGE: Gen.: No acute distress Heart: S1-S2 heard, regular rate and rhythm Lungs: Clear to auscultation bilaterally Abdomen: Soft, fundus firm below umbilicus, Legs: No calf tenderness, +1 bilateral pitting pedal edema. CONDITION AT DISCHARGE: Stable This documentation was created by [employer] freight tallier software (known for inherent freight tallier error). Every effort was made to assure accuracy of freight tallier. Any obvious errors or omissions should be clarified with the author of the document. Primary Care Provider: Tami Mcgowan MD Information Peripartum Data: Infant Delivery Method: Vaginal Physical Exam Urinary Catheter Management: Solis Latex: Cath Placed During This Visit: yes, but has since been removed by the nurse Reason for Continuing Indwelling Catheter: Required Immobilization for Trauma or Surgery or Anesthesia Urinary Catheter Date of Insertion: 02/22/22 Urinary Catheter Time of Insertion: 15:59 Date Urinary Catheter Removed: 02/22/22 Time Urinary Catheter Discontinued: 20:47 History History History 1 Term 1 Miscarriages/Ectopic 0 0 Living Children 1 Other History: X 1 1---> 02/22/2022----> vaginal delivery by Dr. Cooper at [facility] [place], baby girl Lexus weighing 6 pounds 6 ounces. Induction of labor at 39 weeks and 0 days for IUGR of 8 percentile. First-degree vaginal tear. Discharge Data Studies Completed and Pending Laboratory Results WBC 13.4 10^3/uL (4.5-13.0) H 02/23/22 11:15 RBC 3.69 10^6/uL (4.1-5.3) L 02/23/22 11:15 Hgb 10.0 g/dL (11.5-15.3) L 02/23/22 11:15 Hct 30.9 % (37.0-47.0) L 02/23/22 11:15 MCV 83.7 fl (81-99) 02/23/22 11:15 MCH 27.1 pg (28.0-34.0) L 02/23/22 11:15 MCHC 32.4 g/dL (30.0-36.0) 02/23/22 11:15 RDW 13.2 % (12.1-15.1) 02/23/22 11:15 Plt Count 155 10^3/cmm (130-400) 02/23/22 11:15 MPV 12.1 fL (7.4-10.4) H 02/23/22 11:15 Neut % (Auto) 67.5 % 02/21/22 22:05 Lymph % (Auto) 21.5 % 02/21/22 22:05 [place] % (Auto) 8.3 % 02/21/22 22:05 Eos % (Auto) 1.7 % 02/21/22 22:05 Baso % (Auto) 0.4 % 02/21/22 22:05 Neut # (Auto) 7.44 10^3/uL (1.8-8.0) 02/21/22 22:05 Lymph # (Auto) 2.4 10^3/uL (1.5-6.5) 02/21/22 22:05 [place] # (Auto) 0.9 10^3/uL (0.2-0.9) 02/21/22 22:05 Eos # (Auto) 0.2 10^3/uL (0.0-0.8) 02/21/22 22:05 Baso # (Auto) 0.0 10^3/uL (0.0-0.1) 02/21/22 22:05 Nucleated RBC % (auto) 0 % 02/21/22 22:05 Nucleated RBCs # 0.0 /100WBC 02/21/22 22:05 Vitals Last Vital Signs Temp 98.1 F 02/24/22 11:41 Pulse 79 02/24/22 11:41 Resp 16 02/24/22 12:12 BP 119/61 02/24/22 11:41 Pulse Ox 100 02/22/22 15:19 Discharge Plan Discharge Patient Disposition: Home Condition: Stable Prescriptions: No Action prenat.vits,charlotte,vlf-kofk-dhrhl Tablet 1 tab PO DAILY 0RF Patient Instructions: Depression (DC), Expression, Collection and Storage of Breast Milk (DC), How to Increase Your Milk Supply (DC), Bleeding (DC), Preeclampsia and Eclampsia After Delivery (GEN), OB Discharge Report, OB Food/Drug Interaction Guide, OB Care at Home, Opioid Safety, OB Vaginal Deliveries - [facility] Discharge Attestations CASTING MACHINE OPERATOR HELPER Time Spent in Discharge Care*: greater than 30 min Coding Level of Care Code Acute Manager Corporate Marketing for Tameka Ayala
== END 2022-02-24 13:26 | disposition home or self-care (01) | DRG 807 ==
PROVIDERS: Admitting Provider Obstetrics & Gynecology; PCP Family Medicine; Visit Provider Obstetrics & Gynecology
DX: O36.5930 Maternal care for other known or suspected poor fetal growth, third trimester, not applicable or unspecified (principal); Z37.0 Single live birth; O34.83 Maternal care for other abnormalities of pelvic organs, third trimester; N83.202 Unspecified ovarian cyst, left side; O69.2XX0 Labor and delivery complicated by other cord entanglement, with compression, not applicable or unspecified; O70.0 First degree perineal laceration during delivery; Z3A.39 39 weeks gestation of pregnancy
CPT/HCPCS: 36415; 51702; 59025; 59409; 85025; 85027; 96372; 96374; 96376; 98960; J1200; J2270; J2405; J2550; J2795; J3010

== ENCOUNTER 2022-03-26 10:28 | Outpatient (CLI) | payer BC, MEDICAID, SELFPAY ==
--- NOTE | 2022-03-26 10:30 | US_ITS ---
WS: [id number] TRANSABDOMINAL PELVIC AND TRANSVAGINAL PELVIC ULTRASOUND HISTORY: N83.202 - Unspecified ovarian cyst, left side COMPARISON: 08/30/[address] 05/23/2021 Uterus: 9.1 cm x 6.2 cm x 5.6 cm. Mildly enlarged, retroverted uterus. No fibroid or mass. Endometrium: 1.1 cm. Normal homogeneity. Right ovary: 2.2 cm x 2.8 cm x 1.5 cm. Normal size and vascularity. No mass. Left ovary: 7.5 cm x 5.4 cm x 4.2 cm. Enlarged ovary due to an adjacent, inseparable elongated cyst a ssociated with the ovary. Elongated cystic structure measures at least 8.3 x 4.0 x 5.4 cm. No solid c omponent. This cyst was also identified on a prior obstetrical ultrasound from 08/30/2021. Suspect thi s may be a dilated fallopian tube due to its configuration. Small amount of free fluid in the cul-de-sac. US/US pelvic with transvaginal IMPRESSION: 1. Elongated fluid structure in the LEFT adnexa measures 8.3 x 4.0 x 5.4 cm. T his may be a dilated fallopian tube. There are no associated incomplete folds o r flattening of the endosalpingeal folds which can be seen with hydrosalpinx. P eritoneal inclusion cyst is within the differential. This cystic mass has been previously described on prior CT and ultrasound without significant enlargement . 2. Normal endometrium.
== END 2022-03-26 10:29 | disposition home or self-care (01) ==
PROVIDERS: PCP Family Medicine; Visit Provider Obstetrics & Gynecology
DX: N83.202 Unspecified ovarian cyst, left side (principal)
CPT/HCPCS: 76830; 76856

== ENCOUNTER 2022-05-28 09:56 | Day surgery (SDC) | payer BC, MEDICAID, SELFPAY ==
[2022-05-19 14:07] VITALS: BMI 30.1
[2022-05-19 14:10] LABS: Basophils % 0.7 %; Eosinophils # 0.1 10^3/uL (0.0-0.8); Eosinophils % 2.9 %; Hematocrit 38.5 % (37.0-47.0); Hemoglobin 12.2 g/dL (11.5-15.3); Lymphocytes # 1.1 10^3/uL (1.5-6.5); Lymphocytes % 23.2 %; Mean Corpuscular HGB Conc 31.7 g/dL (30.0-36.0); Mean Corpuscular Hemoglobin 25.8 pg (28.0-34.0); Mean Corpuscular Volume 81.4 fl (81-99); Monocytes # 0.3 10^3/uL (0.2-0.9); Monocytes % 6.1 %; Neutrophils # 3.05 10^3/uL (1.8-8.0); Neutrophils % 66.9 %; Nucleated Red Blood Cells % 0 %; Platelet Count 209 10^3/cmm (130-400); Red Blood Count 4.73 10^6/uL (4.1-5.3); White Blood Count 4.6 10^3/uL (4.5-13.0)
[2022-05-19 14:14] LABS: OR HCG Qualitative Urine Negative (Negative)
[2022-05-19 14:18] LABS: Add Urine Culture? No; Add Urine Microscopic? YES; Bacteria Urine TRACE /hpf; Bilirubin Urine Neg (Negative); Blood Urine 3+ (Negative); Glucose Urine UA Norm (Normal); Ketones Urine Negative (Negative); Leukocyte Esterase Urine Negative (Negative); Nitrate Urine Negative (Negative); Protein Urine Neg (Negative); RBC Urine 0-4 /hpf (0-2); Squamous Epithelial Cell Urine RARE /hpf (0-5); Urine Appearance Clear (CLEAR); Urine Color Straw (Yellow); Urobilinogen Urine Norm (Negative); WBC Urine 0-4 /hpf (0-5); pH Urine 6 (5-7)
--- NOTE | 2022-05-19 14:25 | ANES.PREANE2 ---
Pre-Anesthetic Assessment Height/Weight: Height 1.6 m Weight 77.111 kg Preop Diagnosis: Active Labor Operation Date: 05/28/22 11:25 Proposed Procedures p Laparoscopic Salpingectomy Left 01766,N70.11(Left) - Boyd Garvin MD Familial anesthetic complications: None Was Beta Terence taken within 24 hours: N/A Was Clonidine taken within 24 hours: N/A Social No alcohol and No tobacco Exam alert, oriented x 3, clear to auscultation bilaterally and regular rate & rhythm Airway Submandibular: within normal limits Cervical ROM: within normal limits Mallampati: Class I Dentition: full History/ROS No significant complaints Pulmonary None reported CV/HEM None reported Hydrosalpinx Hepatic None reported GI Gastroesophageal Reflux Disease (Poorly controlled, reflux on empty stomach ) Metabolic None reported Musc/skel None reported Neuropsych None reported Anesthetic Plan ASA status: 1 Anesthesia: Anesthesia Evaluation and General Other: We discussed risk and benefits of general anesthesia including PONV, sore throat (sometimes severe), corneal abrasion, positioning and peripheral nerve injuries, life threatening allergic reaction, post operative ICU admission requiring prolonged intubation, stroke, heart attack, , and rare incidences of recall. Patient consents to proceed with general anesthesia. Plan GETA, RSI Risk of > 500 ml blood loss (7ml/kg in children): No Medications/Allergies Home Medications Medication Instructions Recorded Confirmed Last Taken Type No Known Home Medications 04/18/22 05/19/22 Unknown History Allergies Allergy/AdvReac Type Severity Reaction Status Date / Time latex Allergy ALGY-Redness Verified 05/19/22 08:35 of Skin [facility] Anesthesia Medical History No pertinent past medical history Denies diabetes, asthma, hypertension, seizures, DVT/PE PCP: Dr. Mcgowan Surgical History History of wisdom tooth extraction Status post laparoscopic cholecystectomy (~05/20/21) [place]formed [place]. Arredondo [place] [facility] [place] Family History Grandmother Breast cancer Maternal, diagnosed at age 65 Denies family history of Colon cancer Ovarian cancer Diabetes Heart disease Hyperlipidemia Chronic kidney disease (CKD) Hypertension Uterine cancer Thyroid disease Stroke Female Reproductive History Date of last menstrual period: 05/12/22 Spontaneous abortions: No Data Anesthesia : 05/19/22 13:40 05/19/22 13:40 Short CBC 05/19/22 Range/Units 13:40 WBC 4.6 (4.5-13.0) 10^3/uL Hgb 12.2 (11.5-15.3) g/dL Hct 38.5 (37.0-47.0) % MCV 81.4 (81-99) fl Plt Count 209 (130-400) 10^3/cmm Neut % (Auto) 66.9 % Neut # (Auto) 3.05 (1.8-8.0) 10^3/uL Urine 05/19/22 Range/Units 13:40 Urine Color Straw (Yellow) Urine Appearance Clear (CLEAR) Urine pH 6 (5-7) Ur Specific [place] 1.010 (1.005-1.030) Urine Protein Neg (Negative) Urine Glucose (UA) Norm (Normal) Urine Ketones Negative (Negative) Urine Nitrate Negative (Negative) Urine Bilirubin Neg (Negative) Ur Leukocyte Esterase Negative (Negative) Urine RBC 0-4 H (0-2) /hpf Urine WBC 0-4 H (0-5) /hpf Cardiac Studies: No Data to Display
[2022-05-19 14:40] LABS: Alanine Aminotransferase 7 U/L (0-33); Albumin Level 4.1 g/dL (3.5-5.2); Alkaline Phosphatase 73 U/L (35-105); Anion Gap 12.6 (5-19); Aspartate Amino Transferase 10 U/L (0-32); Blood Urea Nitrogen 8 mg/dL (6-20); Calcium 8.8 mg/dL (8.5-10.5); Carbon Dioxide 24 mmol/L (22-29); Chloride 105 mmol/L (98-107); Globulin 3.1 g/dL (1.3-4.6); Glomerular Filtration Rate 127.5 mL/min (90-130); Glucose 81 mg/dL (65-115); Osmolality Calculated 283 mOsm/kg (285-295); Potassium 3.6 mmol/L (3.5-5.1); Sodium 138 mmol/L (136-145); Total Bilirubin 0.6 mg/dL (0.15-1.2); Total Protein 7.2 g/dL (6.6-8.7)
[2022-05-28] VITALS (11 sets, daily range): BP systolic 105–138; BP diastolic 62–87; PULSE 61–106; RESP 16–24; TEMP 36.6–37; O2SAT 96–100
--- NOTE | 2022-05-28 10:05 | W.PM.OPSUD ---
Surgery/Procedure H&P Update DATE OF PROCEDURE: May 28, 2022 DATE H&P PERFORMED: 02/17/22 H&P UPDATE INFORMATION: I have reviewed H&P completed within last 30 days, I have examined patient prior to procedure and No changes to prior documentation PREOP DIAGNOSIS: Active Labor PLANNED PROCEDURE: Operation Date: 05/28/22 11:25 Proposed Procedures p Laparoscopic Salpingectomy Left 45566,N70.11(Left) - Boyd Garvin MD
[2022-05-28] MEDS: sodium chloride 0.9% 1,000 ML 30 ML IV (10:23)
[2022-05-28] MEDS: scopolamine 1.5 Patch 1 PATCH TRANSDERMA (10:25)
--- NOTE | 2022-05-28 10:29 | P.ANESUD_ITS ---
Pre-Anesthetic Update Pre-Anesthetic Assessment: Date of Surgery/Procedure: 05/28/22 Preop Nithya gnosis: Left hydrosalpinx Proposed Procedure: Operation Date: 05/28/22 11:25 Proposed Procedures p Laparoscopic Salpingectomy Left [id number],N70.11(Left) - Boyd Garvin MD Any changes to Pre-Anesthetic Assessment?: No Last Intake: Intake Last Liquid Date 05/27/22 Last Liquid Time 23:50 Last Solid Date 05/27/22 Last Solid Time 21:15 Vitals: Temperature 98 F 05/28/22 10:13 Temperature Source Temporal Artery S can 05/28/22 10:13 Pulse Rate 106 H 05/28/22 10:13 Respiratory Rate 18 05/28/22 10:13 Blood Pressure 138/87 05/28/22 10:13 Blood Pressure Bethany n 104 05/28/22 10:13 Pulse Oximetry 99 05/28/22 10:13 Oxygen Delivery Me thod 05/28/22 10:13 Exam: Pre-Anes Outpt Exam: alert, oriented x 3, clear to auscultation bilaterally and regular rate & rhythm Cardiac Studies: No Data to Display
[2022-05-28] MEDS: ceFAZolin 2,000 MG in sodium chloride 0.9% (plus) 50 ML 100 MG IV (10:35)
--- NOTE | 2022-05-28 11:54 | P.OP_ITS ---
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 Paratubal cyst Surgeon: Boyd Garvin MD Estimated blood loss (mL): 5 IV fluids (mL): 800 Urine output (mL): 50 Findings: Left bparatubal cyst or hydatid cyst of Morgagni Procedure: After informed consent, the patient was taken to the operating room where general anesthesia was administered. Pre-Procedure Time-Out verifying the correct patient identity, correct procedure verified with consent, correct site and side, correct patient position, availability of correct implants and any special equipment or requirements was performed and acknowledge by the OR team. She was placed in the dorsal lithotomy position and prepped and draped in sterile fashion. The patient was examined under anesthesia and found to have a normal uterus with normal adnexa. A Solis catheter was placed in the bladder. A open side speculum was placed in the vagina, and the anterior lip of cervix was grasped with the single toothed tenaculum. The uterus was sounded to a measure 8 cm. A uterine manipulator was advanced into the endocervical and its bulb filled with NS. Tenaculum was removed after uterine manipulator was secured. The speculum was removed from the vagina. The attention was brought to abdomen after changing gloves. The base of the umbilicus was grasped with an Al lis clamp and with 2 towel clamp bilaterally tenting up the umbilicus an intraumbilical incision was made with a scalpel. While tenting up on the abdomen, a Verres needle with sleeve was admitted into the intra-abdominal cavity. A saline drop test was performed and noted to be within normal limits. Pneumoperitoneum was attained with 4 liters of carbon dioxide. The gas was seen to flow freely with normal resistance, so the CO2 gas was advanced to a higher setting. The abdomen was insufflated to an adequate distension. Once an adequate distention was reached, the Verres needle was removed. Then a 5 mm Optiview trocar and cannula were inserted under direct visualization without complications. Trocars were removed and the laparoscope was inserted. At this time, a second incision was made 3 cm above the symphysis pubis, and a 5 mm trocar and sleeve were admitted into the abdomen under direct, laparoscopic visualization without complication. A 5 mm blunt probe was advanced through the second trocar sleeve, and light manipulation of ovaries and uterus to assess the pelvis and posterior aspects was performed. The survey showed normal pelvic organs, uterus, left and right ovaries, normal right fallopian tube and normal left fallopian tube with paratubal cysts. A third incision was made in the left lower quadrant and the third 10mm trocar was inserted into the abdomen under direct visualization. Also an incision was made in the right lower quadrant and a 5mm trocar was inserted under direct visualization without complcations . Examination of the pelvis revealed findings as above. At this time, the left paratubal cyst or a hydatid cyst of Morgagni was noted. Attention was turned to the cysts which was mobilized out of the pelvis. An approximately 2-3 cm incision was made along the the cyst using scissors. At this point, it was dissected initially using hydrodissection and using blunt dissection probed. Entry into the cyst was created using the aspiration needle. Suction was used to drain fluid at this time from the cyst. At this time, the cyst wall was identified and was removed using blunt dissection with countertraction. The oparatubal cyst bed was then irrigated and dried. There was minimal slight oozing noted near the edge, but hemostasis noted. Then once hemostasis was assured, the the cyst was removed through the 10 mm incision without difficulty. At this time, all instruments were removed under visualization. The umbilical incision was closed using 2 interrupted stitches of 2-0 Vicryl sutures and the skin was closed usinginterrupted stitches of 4-0 Vicryl suture. Dermobond was placed after closure with 4-0 suture in the lateral ports. All instruments were removed. The uterine manipulator was removed. Then the single-toothed tenaculum was removed. The instruments were removed from the vagina, and excellent hemostasis was noted. The patient tolerated the procedure well, and sponge, lap and needle count were correct times two. The patient taken to the recovery room in good condition.
[2022-05-28] MEDS: fentaNYL 50 mcg/mL INJ 2mL IVP (12:12)
--- NOTE | 2022-05-28 12:19 | ANE.PACU2 ---
Inpatient post-anesthesia follow up: Airway intact: Yes Vital signs: Temperature 98 F Pulse Rate 106 Respiratory Rate 18 Blood Pressure 138/87 Pulse Oximetry 99 Oxygen Delivery Me thod Room Air Oxygen Flow Rate Fraction of Inspir ed Oxygen Hydration adequate: Yes Nausea and vomiting: No Pain level: 1 Mental status: Baseline
--- NOTE | 2022-05-28 12:22 | SUR.PHASEI ---
1207 PT TO PACU 5 PT AWAKES OPENS EYES, PT RESTLESS AND MOANING, NODS HEAD YES TO PAIN QUESTIONS.PT HAS GOOD RESP EFFORT, NON LABORED ON RA SATS 99%. PT DOES NOT VOCALIZE, ABDOMEN SOFT WITH 3 SITES WITH SKIN GLUE, HASSAN CATHETER TO DD STATLOCK PLACED ON LT INNER THIGH, SMALL AMT YELLOW URINE NOTED IN TUBING AND BAG, BILAT SCDS ON IV TO RT HAND #20 WITH NS 100ML UP AT KVO RATE PER GRAVITY. ID BRACELET TO LT WRIST , PT ID'D WITH 2 IDENTIFIERS. MONITOR SR WITH NO ECTOPY 1227 PT MORE ALERT DENIES PAIN AND NAUSEA, PT TAKING OCCASIONAL ICE CHIPS.
[2022-05-28 12:35] LABS: Cyto Order Verification Order Verified
[2022-05-28] MEDS: HYDROcodone-acetaminophen 5-325 mg Tablet 1 TAB PO (13:23)
== END 2022-05-28 14:35 | disposition home or self-care (01) ==
PROVIDERS: PCP Family Medicine; Visit Provider Obstetrics & Gynecology
PROC: (CPT 58661; principal; 2022-05-28 11:15)
DX: N83.8 Other noninflammatory disorders of ovary, fallopian tube and broad ligament (principal); Z91.040 Latex allergy status
CPT/HCPCS: 58662; 36415; 80053; 81001; 81025; 84703; 85025; 86850; 86900; 88108; 88304; J1100; J1200; J2250; J2405; J2704; J3010; J3490; J7030

== ENCOUNTER 2022-06-01 21:34 | Emergency (ER) | payer BC, MEDICAID, SELFPAY ==
[2022-06-01 21:38] VITALS: BP 118/80; PULSE 76; RESP 17; TEMP 37.1; O2SAT 99; BMI 26.5
[2022-06-01 21:59] LABS: Add Urine Microscopic? NO; Charge for UA Resulting for Rev
[2022-06-01 22:10] VITALS: BP 124/67; PULSE 84; RESP 18; O2SAT 99
[2022-06-01 22:12] LABS: Bilirubin Urine Neg (Negative); Blood Urine Neg (Negative); Glucose Urine UA Norm (Normal); Ketones Urine Negative (Negative); Leukocyte Esterase Urine Negative (Negative); Nitrate Urine Negative (Negative); Protein Urine Neg (Negative); Urine Appearance Clear (CLEAR); Urine Color Yellow (Yellow); Urobilinogen Urine Neg (Negative); pH Urine 7 (5-7)
--- NOTE | 2022-06-01 22:16 | CTR_ITS ---
PROCEDURE INFORMATION: Exam: CT Abdomen And Pelvis With Contrast Exam date and time: 06/01/2022 10:25 PM Age: 21 years old Clinical indication: Abdominal pain; Prior surgery; Surgery date: 3-7 days post-operative; Surgery type: Lap port drainage 5 days post op. Cholecystectomy; Additional info: Abd pain, lap port drainage 5 days post op TECHNIQUE: Imaging protocol: Computed tomography of the abdomen and pelvis with contrast. Radiation optimization: All CT scans at this facility use at least one of these dose optimization techniques: automated exposure control; mA and/or kV adjustment per patient size (includes targeted exams where dose is matched to clinical indication); or iterative reconstruction. Contrast material: OMNI 350; Contrast volume: 80 ml; Contrast route: INTRAVENOUS (IV); COMPARISON: CT abdomen pelvis w con* [id number] 05/23/2021 5:00 AM RADIATION DOSE METRICS: Total DLP (mGy-cm): 543.66 FINDINGS: Liver: Normal. No mass. Gallbladder and bile ducts: Status post cholecystectomy. Pancreas: Normal. No ductal dilation. Spleen: Normal. No splenomegaly. Adrenal glands: Normal. No mass. Kidneys and ureters: Normal. No hydronephrosis. Stomach and bowel: Unremarkable. No obstruction. No mucosal thickening. Appendix: The appendix is visualized and is normal in configuration. Intraperitoneal space: Unremarkable. No free air. No significant fluid collection. Vasculature: Unremarkable. No abdominal aortic aneurysm. Lymph nodes: Unremarkable. No enlarged lymph nodes. Urinary bladder: Unremarkable as visualized. Reproductive: There is a 1.7 x 2.1 x 1.8 cm hypoattenuation cystic mass seen within the left ovary exhibiting peripheral enhancement compatible with a hemorrhagic cyst. Bones/joints: Unremarkable. No acute fracture. Soft tissues: There are subcutaneous gas densities seen in the left inguinal region and extending along the anterior abdominal wall on the left with some surrounding hazy strandy opacities present in the the subcutaneous fat fascia the anterior abdominal wall. Focal strandy and hazy opacities are seen in the left anterior abdominal wall extending from the skin surface to the investing fascia as well. These findings likely represent recent postoperative changes. Other findings: There is low-attenuation fluid seen within the dependent portion of the pelvis likely commensurate with the patient's age and menstrual status. CT/CT abdomen pelvis w con* [id number] IMPRESSION: 1. Subcutaneous gas densities and hazy and strandy opacities are seen on the left anterior abdominal wall extending to the left apical region likely representing recent postoperative changes. 2. Low-attenuation fluid is seen in the dependent portion of the pelvis likely commensurate with the patient's age and menstrual status. 3. Probable benign hemorrhagic cyst of the left ovary measuring up to 2.1 cm. No further workup needed. 4. Normal appendix 5. No evidence for ureteral obstruction
[2022-06-01 22:19] LABS: Basophils # 0.1 10^3/uL (0.0-0.1); Basophils % 0.7 %; Eosinophils # 0.2 10^3/uL (0.0-0.8); Eosinophils % 3.3 %; Hemoglobin 11.8 g/dL (11.5-15.3); Lymphocytes # 2.7 10^3/uL (1.5-6.5); Lymphocytes % 37.4 %; Mean Corpuscular HGB Conc 31.1 g/dL (30.0-36.0); Mean Corpuscular Volume 80.5 fl (81-99); Mean Platelet Volume 10.6 fL (7.4-10.4); Monocytes # 0.4 10^3/uL (0.2-0.9); Monocytes % 5.3 %; Neutrophils # 3.82 10^3/uL (1.8-8.0); Neutrophils % 53.2 %; Nucleated Red Blood Cells % 0 %; Platelet Count 241 10^3/cmm (130-400); Red Blood Count 4.72 10^6/uL (4.1-5.3); White Blood Count 7.2 10^3/uL (4.5-13.0)
[2022-06-01] MEDS: iohexol 350 mg/mL 100 mL Btl 80 ML IV (22:33)
[2022-06-01 22:35] LABS: Lactic Sepsis W/Reflex 0.9 mmol/L (0.5-2.2)
[2022-06-01 22:41] LABS: Alanine Aminotransferase 119 U/L (0-33); Alkaline Phosphatase 81 U/L (35-105); Anion Gap 14.8 (5-19); Aspartate Amino Transferase 14 U/L (0-32); Blood Urea Nitrogen 8 mg/dL (6-20); Calcium 9.2 mg/dL (8.5-10.5); Carbon Dioxide 25 mmol/L (22-29); Chloride 106 mmol/L (98-107); Creatinine Clr Calc Pharmacy 118.7078; Globulin 2.7 g/dL (1.3-4.6); Glomerular Filtration Rate 106.7 mL/min (90-130); Glucose 83 mg/dL (65-115); Osmolality Calculated 291 mOsm/kg (285-295); Potassium 3.8 mmol/L (3.5-5.1); Sodium 142 mmol/L (136-145); Total Bilirubin 0.3 mg/dL (0.15-1.2); Total Protein 6.7 g/dL (6.6-8.7)
[2022-06-01] MEDS: clindamycin 150 mg Capsule 300 MG PO (23:21)
[2022-06-01 23:25] VITALS: BP 117/83; PULSE 61; RESP 18; O2SAT 99
--- NOTE | 2022-06-02 04:57 | ED_ITS ---
HPI - Abdominal Pain General: Chief Complaint: Abdominal Pain Stated Complaint: infection around surgery site Time Seen by Provider: 06/01/22 22:00 History of Present Illness: 21-year-old female who had a laparoscopy 4 days ago. She presents with increasing tenderness, foul-smelling drainage, and some redness to one of her port holes. She states that she ran a temperature of 100.0 at home.. Other sites are not painful. She is not vomiting. MD elicited complaint: abdominal pain Pertinent past history: other Onset (ago): hour(s) Pain Consistency: constant Location: LLQ Quality: aching Exacerbating factors: movement Relieving factors: nothing Associated Symptoms: Reports fever(s) and nausea; Denies change in bowel habits, diarrhea and vomiting Related Data: Date of Last Menstrual Period: 05/12/22 Review of Systems Const: Reports: fever(s) Eyes: Denies: change in vision Card: Denies: chest pain or palpitations Resp: Denies: dyspnea, productive cough, non-productive cough or wheezing GI: Reports: abdominal pain and nausea; Denies: vomiting, diarrhea or change in bowel habits : Denies: difficulty voiding Skin/Breast: Denies: rash Neuro: Denies: headache(s), weakness in extremities, dizziness or confusion PFSH ED PFSH: Medical History No pertinent past medical history Denies diabetes, asthma, hypertension, seizures, DVT/PE PCP: Dr. Mcgowan Surgical History History of wisdom tooth extraction Status post laparoscopic cholecystectomy (~05/20/21) Performed by Dr. Arredondo at [facility] [place] Family History Grandmother Breast cancer Maternal, diagnosed at age 65 Denies family history of Colon cancer Ovarian cancer Diabetes Heart disease Hyperlipidemia Chronic kidney disease (CKD) Hypertension Uterine cancer Thyroid disease Stroke Female Reproductive History: Date of last menstrual period: 05/12/22 Spon taneous abortions: No Physical Exam Const: COMMON NORMALS: no acute distress GENERAL APPEARANCE: cooperative; not ill appearing and not frail appearing HENMT: COMMON NORMALS: normocephalic, atraumatic and Normal external nose present HEAD & SCALP: normocephalic and atraumatic FACE & SINUS: normal facial exam and face symmetric NOSE: Normal external nose present Eye: COMMON NORMALS: Equal, round and reactive pupils present and EOMs intact bilaterally PUPIL: Yes Equal, round and reactive pupils present Neck/C-Spine: GENERAL: Yes trachea midline Chest: CHEST: Yes Symmetrical chest wall rise Resp: COMMON NORMALS: normal respiratory effort, No retractions, No use of accessory muscles and clear to auscultation bilaterally AUSCULTATION: clear to auscultation bilaterally Cardio: COMMON NORMALS: regular rate and regular rhythm RATE: regular rate RHYTHM: regular rhythm GI: COMMON NORMALS: Normal to inspection, nondistended, normoactive bowel sounds present OTHER: Mild redness to left lower anterior belly wall. Port hole has opened minimally. No active drainage currently. There is tenderness to the area. Extremity: COMMON NORMALS: no pedal edema Neuro: TAD COMA SCALE: document GCS findings Tad coma scale eye opening: Spontaneous [place] coma scale verbal response: Orientated Tad coma scale motor response: Obey commands Tad coma scale total score: 15 SENSORY EXAM: Yes extremities (intact) Psych: COMMON NORMALS: speech normal SPEECH: Yes normal speech Skin: COMMON NORMALS: no rashes or lesions noted GENERAL SKIN EXAM: no rashes or lesions noted Course Vital Signs: Vital signs: Vital Signs Temperature 98.7 F 06/01/22 21:38 Pulse Rate 61 06/01/22 23:25 Respiratory Rate 18 06/01/22 23:25 Blood Pressure 117/83 06/01/22 23:25 Pulse Oximetry 99 06/01/22 23:25 Oxygen Delivery Me thod 06/01/22 21:38 MDM - Abdominal Pain Medical Decision Making White blood cell count is normal. BMP is normal. Liver enzymes are not remarkable. CT of the belly shows subcutaneous gas densities and hazy and strandy opacities are seen on the left anterior abdominal wall, per her port hole has opened some degree. There is some surrounding cellulitis. She will be treated with clindamycin to cover. Close outpatient follow-up with her surgeon. Return if worsening. Lab Data : 06/01/22 22:11 06/01/22 22:11 Labs/Radiology: Radiology Impressions Abdomen/Pelvis CT 06/01/22 22:16 IMPRESSION: 1. Subcutaneous gas densities and hazy and strandy opacities are seen on the left anterior abdominal wall extending to the left apical region likely representing recent postoperative changes. 2. Low-attenuation fluid is seen in the dependent portion of the pelvis likely commensurate with the patient's age and menstrual status. 3. Probable benign hemorrhagic cyst of the left ovary measuring up to 2.1 cm. No further workup needed. 4. Normal appendix 5. No evidence for ureteral obstruction Laboratory Results WBC 7.2 10^3/uL (4.5-13.0) 06/01/22 22:11 RBC 4.72 10^6/uL (4.1-5.3) 06/01/22 22:11 Hgb 11.8 g/dL (11.5-15.3) 06/01/22 22:11 Hct 38.0 % (37.0-47.0) 06/01/22 22:11 MCV 80.5 fl (81-99) L 06/01/22 22:11 MCH 25.0 pg (28.0-34.0) L 06/01/22 22:11 MCHC 31.1 g/dL (30.0-36.0) 06/01/22 22:11 RDW 13.0 % (12.1-15.1) 06/01/22 22:11 Plt Count 241 10^3/cmm (130-400) 06/01/22 22:11 MPV 10.6 fL (7.4-10.4) H 06/01/22 22:11 Neut % (Auto) 53.2 % 06/01/22 22:11 Lymph % (Auto) 37.4 % 06/01/22 22:11 [place] % (Auto) 5.3 % 06/01/22 22:11 Eos % (Auto) 3.3 % 06/01/22 22:11 Baso % (Auto) 0.7 % 06/01/22 22:11 Neut # (Auto) 3.82 10^3/uL (1.8-8.0) 06/01/22 22:11 Lymph # (Auto) 2.7 10^3/uL (1.5-6.5) 06/01/22 22:11 [place] # (Auto) 0.4 10^3/uL (0.2-0.9) 06/01/22 22:11 Eos # (Auto) 0.2 10^3/uL (0.0-0.8) 06/01/22 22:11 Baso # (Auto) 0.1 10^3/uL (0.0-0.1) 06/01/22 22:11 Nucleated RBC % (auto) 0 % 06/01/22 22:11 Nucleated RBCs # 0.0 /100WBC 06/01/22 22:11 Sodium 142 mmol/L (136-145) 06/01/22 22:11 Potassium 3.8 mmol/L (3.5-5.1) 06/01/22 22:11 Chloride 106 mmol/L (98-107) 06/01/22 22:11 Carbon Dioxide 25 mmol/L (22-29) 06/01/22 22:11 Anion Gap 14.8 (5-19) 06/01/22 22:11 BUN 8 mg/dL (6-20) 06/01/22 22:11 Creatinine 0.7 mg/dL (0.5-0.9) 06/01/22 22:11 GFR Calculation 106.7 mL/min (90-130) 06/01/22 22:11 Glucose 83 mg/dL (65-115) 06/01/22 22:11 Calculated Osmolality 291 mOsm/kg (285-295) 06/01/22 22:11 Lactic Acid 0.9 mmol/L (0.5-2.2) 06/01/22 22:11 Calcium 9.2 mg/dL (8.5-10.5) 06/01/22 22:11 Total Bilirubin 0.3 mg/dL (0.15-1.2) 06/01/22 22:11 AST 14 U/L (0-32) 06/01/22 22:11 ALT 119 U/L (0-33) H 06/01/22 22:11 Alkaline Phosphatase 81 U/L (35-105) 06/01/22 22:11 Total Protein 6.7 g/dL (6.6-8.7) 06/01/22 22:11 Albumin 4.0 g/dL (3.5-5.2) 06/01/22 22:11 Globulin 2.7 g/dL (1.3-4.6) 06/01/22 22:11 Urine Color Yellow (Yellow) 06/01/22 21:51 Urine Appearance Clear (CLEAR) 06/01/22 21:51 Urine pH 7 (5-7) 06/01/22 21:51 Ur Specific Chambers 1.010 (1.005-1.030) 06/01/22 21:51 Urine Protein Neg (Negative) 06/01/22 21:51 Urine Glucose (UA) Norm (Normal) 06/01/22 21:51 Urine Ketones Negative (Negative) 06/01/22 21:51 Urine Blood Neg (Negative) 06/01/22 21:51 Urine Nitrate Negative (Negative) 06/01/22 21:51 Urine Bilirubin Neg (Negative) 06/01/22 21:51 Urine Urobilinogen Neg mg/dL (Negative) 06/01/22 21:51 Ur Leukocyte Esterase Negative (Negative) 06/01/22 21:51 Discharge Plan Discharge Patient Disposition: Home Clinical Impression: Reaction at surgical site Condition: Stable Prescriptions: New clindamycin HCl 300 mg capsule 300 mg PO Q6H 7 Days Qty: 28 0RF No Action acetaminophen 325 mg capsule 325 mg PO Q4H PRN (Reason: fever or pain) Qty: 60 0RF ibuprofen 800 mg tablet 800 mg PO TID PRN (Reason: pain) Qty: 60 0RF hydrocodone-acetaminophen 5-325 mg tablet 1 tab PO Q4H PRN (Reason: pain) Qty: 20 0RF Discharge Orders: Discharge ED (Routine); Ordered 06/01/22 Ordered By: Yogi Zhang Referrals: Boyd Garvin MD [Physician] - 1-3 days Tami Mcgowan MD [Primary Care Provider] - Patient Instructions: Surgical Site Infections (ED), Opioid Safety Activity Restrictions/Additional Instructions: Return for fever greater than 100 despite 3 or more doses of antibiotics, worsening pain, vomiting liquids or medications, other concerning symptoms. Coding Level of Care Code ED Housekeeping Room Attendant for Tameka Ayala
== END 2022-06-01 23:26 | disposition home or self-care (01) ==
PROVIDERS: Emergency Provider Emergency Medicine; PCP Family Medicine
DX: T81.41XA Infection following a procedure, superficial incisional surgical site, initial encounter (principal); L03.311 Cellulitis of abdominal wall
CPT/HCPCS: 74177; 80053; 81003; 83605; 85025; 99285; Q9967

== ENCOUNTER 2022-06-10 22:02 | Emergency (ER) | payer BC, MEDICAID, SELFPAY ==
[2022-06-10 22:06] VITALS: BP 122/82; PULSE 98; RESP 18; TEMP 36.7; O2SAT 97; BMI 29.7
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
[2022-06-10] MEDS: bacitracin ointment Pkt 1 EACH TOPICAL (22:42)
[2022-06-10] MEDS: ibuprofen 600 mg Tablet PO (22:43)
== END 2022-06-10 22:44 | disposition home or self-care (01) ==
PROVIDERS: Emergency Provider Nurse Practitioner Family; PCP Family Medicine
DX: T23.231A Burn of second degree of multiple right fingers (nail), not including thumb, initial encounter (principal); X12.XXXA Contact with other hot fluids, initial encounter
CPT/HCPCS: 99283

== ENCOUNTER → 2022-06-19 08:46 | Outpatient (BNVA) | payer BC, MEDICAID, SELFPAY | PROVIDERS: PCP Family Medicine; Visit Provider Nurse Practitioner Women's Health | DX: Z48.816 Encounter for surgical aftercare following surgery on the genitourinary system (principal); Z30.9 Encounter for contraceptive management, unspecified; Z30.430 Encounter for insertion of intrauterine contraceptive device | CPT/HCPCS: 81025 ==